=== PATIENT | female | born 1985 | race Caucasian/White ===

== ENCOUNTER 2018-04-16 10:48 | Emergency (ER) | payer OTHER ==
[2018-04-16] MEDS ORDERED: KETOROLAC 60 MG/2 ML VIAL IVP STA ×2 (12:54→13:10)
--- NOTE | 2018-04-16 12:57 | ED Physician Documentation ---
History of Present Illness - Stated complaint Stated Complaint: AB PX - Chief complaint Chief Complaint: General - History obtained from History obtained from: Patient - History of Present Illness Timing: Yesterday Pain level max: 9 Pain level now: 8 Improved by: nothing Worsened by: movement - Additonal information Additional information: LLQ abd/pelvic pain last yesterday, now spread to L flank and down the L leg. LMP was 2 weeks ago.. Had similar pain 6-8 months ago. Took midol last night without relief. No vaginal bleeding or discharge. Review of Systems Ten Systems: 10 systems reviewed and negative Constitutional: denies: Fever, Chills Throat: denies: Sore throat Cardiac: denies: Chest pain / pressure Respiratory: denies: Cough GI: denies: Vomiting : denies: Dysuria, Frequency, Hesitancy Skin: denies: Rash Musculoskeletal: denies: Neck pain Neurologic: denies: Headache PD PAST MEDICAL HISTORY - Past Medical History Past Medical History: Yes Cardiovascular: None Respiratory: Asthma, Other Endocrine/Autoimmune: None GI: GERD : None HEENT: Chronic vision loss Psych: Post traumatic stress disorder, Claustrophobia Musculoskeletal: None Derm: Other - Past Surgical History Past Surgical History: Yes - Present Medications Home Medications: Ambulatory Orders Medication Instructions Recorded Confirmed Albuterol Sulf [Ventolin Hfa 04/16/18 Inhaler] Hydrocodone/Acetaminophen 1 - 2 each PO Q6H PRN #14 tablet 04/16/18 [Hydrocodon-Acetaminophen 5-325] Meloxicam [Mobic] 15 mg PO DAILY PRN #20 tablet 04/16/18 Ondansetron Odt [Zofran] 4 mg TL Q6H PRN #10 tablet 04/16/18 - Allergies Allergies/Adverse Reactions: Allergies Allergy/AdvReac Type Severity Reaction Status Date / Time bacitracin Allergy Intermediate blisters Verified 12/25/14 22:44 [From Neosporin ([id number])] bacitracin zinc * Allergy Intermediate blisters Verified 12/25/14 22:44 [From Neosporin ([id number])] neomycin sulfate * Allergy Intermediate blisters Verified 12/25/14 22:44 [From Neosporin (did-fum-[id number])] polymyxin B Allergy Intermediate blisters Verified 12/25/14 22:44 [From Neosporin (aag-ibn-mvpar)] oxycodone HCl * AdvReac Intermediate Nausea Verified 04/06/15 09:21 [From Percocet] - Social History Does the pt smoke?: No Smoking Status: Never smoker Does the pt drink ETOH?: No Does the pt have substance abuse?: No - Immunizations Immunizations are current?: Yes Immunizations: TDAP >10years/unknown - POLST Patient has POLST: No PD ED PE NORMAL - Vitals Vital signs reviewed: Yes - General General: Alert and oriented X 3, Well developed/nourished, Other (appears in pain) - HEENT HEENT: PERRL, Moist mucous membranes - Neck Neck: Supple, no meningeal sign - Cardiac Cardiac: RRR, Strong equal pulses - Respiratory Respiratory: No respiratory distress, Clear bilaterally - Abdomen Abdomen: Soft, Non distended, Other (TTP LLQ no peritoneal signs) - Back Back: No CVA TTP, No spinal TTP - Derm Derm: Warm and dry - Extremities Extremities: Normal ROM s pain, No edema, No calf tenderness / cord - Neuro Neuro: Alert and oriented X 3 - Psych Psych: Normal mood, Normal affect Results - Vitals Vitals: Vital Signs - 24 hr 04/16/18 04/16/18 04/16/18 10:57 14:12 15:45 Temperature 36.9 C 37.1 C Heart Rate 110 H 85 70 Respiratory 16 12 16 Rate Blood Pressure 124/87 H 119/81 H 133/87 H O2 Saturation 99 100 100 Oxygen O2 Source Room air - Labs Labs: Laboratory Tests 04/16/18 04/16/18 04/16/18 13:15 13:15 13:30 WBC 8.5 RBC 4.76 Hgb 14.2 Hct 41.9 MCV 88.1 MCH 29.8 MCHC 33.9 RDW 12.6 Plt Count 279 MPV 7.7 L Neut # (Auto) 4.5 Lymph # (Auto) 3.1 [place] # (Auto) 0.6 Eos # (Auto) 0.3 Baso # (Auto) 0.0 Absolute Nucleated RBC 0.00 Nucleated RBC % 0.0 Sodium 137 Potassium 3.8 Chloride 104 Carbon Dioxide 26 Anion Gap 7.0 BUN 11 Creatinine 0.8 Estimated GFR (MDRD) 84 L Glucose 87 Calcium 8.9 Total Bilirubin 0.6 AST 18 ALT 17 Alkaline Phosphatase 57 Total Protein 7.6 Albumin 4.4 Globulin 3.2 Albumin/Globulin Ratio 1.4 Lipase 25 Urine Color YELLOW Urine Clarity HAZY Urine pH 6.5 Ur Specific [place] 1.020 Urine Protein NEGATIVE Urine Glucose (UA) NEGATIVE Urine Ketones NEGATIVE Urine Occult Blood NEGATIVE Urine Nitrite NEGATIVE Urine Bilirubin NEGATIVE Urine Urobilinogen 0.2 (NORMAL) Ur Leukocyte Esterase SMALL H Urine RBC 0-5 Urine WBC 6-10 H Ur Squamous Epith Cells MANY Squamous H Urine Bacteria Few Ur Microscopic Review INDICATED Urine Culture Comments NOT INDICATED Urine HCG, Qual NEGATIVE - Rads (name of study) CT abd/pelvis Radiology: Prelim report reviewed, EMP read contemporaneously, See rad report (Small amount of free fluid in the posterior cul-de-sac of the pelvis. No other localizing inflammatory process demonstrated.) PD MEDICAL DECISION MAKING - ED course Complexity details: reviewed results, re-evaluated patient, considered differential, d/w patient ED course: Pain greatly improved with toradol. Sx c/w ruptured ovarian cyst and small amount of free fluid on CT. Will continue supportive care and follow up with PCP. US not available today. Pt counseled regarding expected course and signs and symptoms for which I believe an urgent evaluation would be necessary. Pt wi th good understanding and agreement to plan. Departure - Departure Disposition: 01 Home, Self Care Clinical Impression: Ovarian cyst Qualifiers: Laterality: left Qualified Code(s): N83.202 - Unspecified ovarian cyst, left side Condition: Good Instructions: ED Cyst Ovarian Follow-Up: your,doctor in 1 week [Other] Prescriptions: Hydrocodone/Acetaminophen [Hydrocodon-Acetaminophen 5-325] 1 - 2 each PO Q6H PRN #14 tablet PRN Reason: pain Meloxicam [Mobic] 15 mg PO DAILY PRN #20 tablet PRN Reason: pain Ondansetron Odt [Zofran] 4 mg TL Q6H PRN #10 tablet PRN Reason: Nausea / Vomiting Comments: Return if you worsen. This should improve over the next few days. Do not drink alcohol or drive while on narcotic pain medicine. Note that many narcotic pain relievers also contain tylenol/acetaminophen. Please ensure that your total dose of acetaminophen from all sources does not exceed 3 grams (3000mg) per day. You may constipated on this medication, take a stool softener such as "Colace" twice a day while you are on it. Also recommend a mgnq-xax-owclvuw laxative such as senna or MiraLAX any day that you do not have a bowel movement. If you received narcotic pain medication in the emergency department, do not drive or operate machinery for the next 24 hours. Discharge Date/Time: 04/16/18 15:45
[2018-04-16] MEDS ORDERED: HYDROcod/ACETAM 5/325 MG TABLET PO STA (13:07)
[2018-04-16] MEDS ORDERED: KETOROLAC 60 MG/2 ML VIAL IM STA (13:07)
[2018-04-16] MEDS ORDERED: ONDANSETRON ODT 4 MG TABLET TL STA (13:07)
[2018-04-16] MEDS ORDERED: ONDANSETRON 4 MG/2 ML VIAL IVP STA (13:10)
[2018-04-16] MEDS ORDERED: IOVERSOL 320 100 ML VIAL IVP ONE ×2 (13:24→15:39)
[2018-04-16 13:26] LABS: BASOPHILS % (AUTO) 0.5 %; EOSINOPHILS # (AUTO) 0.3 10^3/uL (0.0-0.7); HGB - HEMOGLOBIN 14.2 g/dL (12.0-16.0); LYMPHOCYTES # (AUTO) 3.1 10^3/uL (1.5-3.5); LYMPHOCYTES % (AUTO) 36.5 %; MEAN CORPUSCULAR HEMOGLOBIN 29.8 pg (27.0-31.0); MEAN CORPUSCULAR HGB CONC 33.9 g/dL (32.0-36.0); MEAN CORPUSCULAR VOLUME 88.1 fL (81.0-99.0); MEAN PLATELET VOLUME 7.7 fL (7.9-10.8); MONOCYTES # (AUTO) 0.6 10^3/uL (0.0-1.0); MONOCYTES % (AUTO) 6.6 %; NEUTROPHILS # (AUTO) 4.5 10^3/uL (1.5-6.6); NEUTROPHILS % (AUTO) 53.4 %; PLT - PLATELET COUNT 279 10^3/uL (130-450); RED BLOOD COUNT 4.76 10^6/uL (4.20-5.40); RED CELL DISTRIBUTION WIDTH 12.6 % (12.0-15.0); WHITE BLOOD COUNT 8.5 x10^3/uL (4.8-10.8)
[2018-04-16 13:40] LABS: ALBUMIN 4.4 g/dL (3.2-5.5); ALBUMIN/GLOBULIN RATIO 1.4 (1.0-2.2); BILIRUBIN,TOTAL 0.6 mg/dL (0.2-1.0); CALCIUM 8.9 mg/dL (8.5-10.3); CREATININE 0.8 mg/dL (0.4-1.0); TOTAL PROTEIN 7.6 g/dL (6.7-8.2)
[2018-04-16 13:43] LABS: BILIRUBIN,URINE NEGATIVE (NEGATIVE); GLUCOSE, URINE (UA) NEGATIVE (NEGATIVE); KETONES,URINE (UA) NEGATIVE (NEGATIVE); LEUKOCYTE ESTERASE, URINE SMALL (NEGATIVE); NITRITE,URINE NEGATIVE (NEGATIVE); OCCULT BLOOD,URINE NEGATIVE (NEGATIVE); PH,URINE 6.5 PH (5.0-7.5); PROTEIN,URINE NEGATIVE (NEGATIVE); UROBILINOGEN,URINE 0.2 (NORMAL) E.U./dL (NORMAL)
[2018-04-16 13:45] LABS: CLARITY,URINE HAZY (CLEAR)
[2018-04-16 13:46] LABS: HCG UR QUAL NEGATIVE
[2018-04-16 13:50] LABS: BACTERIA,URINE Few /HPF (None Seen); RBC,URINE 0-5 /HPF (0-5); SQUAMOUS EPITHELIAL CELL,UR MANY Squamous (<= Few)
--- NOTE | 2018-04-16 15:19 | CT Report ---
Reason: LLQ abd Procedure Date: 04/16/2018 Accession Number: [id number] / [id number] Procedure: CT - Abdomen/Pelvis W/ CPT Code: FULL RESULT: EXAM: CT ABDOMEN AND PELVIS EXAM DATE: 04/16/2018 02:39 PM. CLINICAL HISTORY: LLQ abd. COMPARISONS: None. TECHNIQUE: Routine helical CT imaging was performed through the abdomen and pelvis. IV contrast: ISOVUE 300 100mL. Enteric contrast: No. Reconstructions: Coronal and sagittal. In accordance with CT protocol optimization, one or more of the following dose reduction techniques were utilized for this exam: automated exposure control, adjustment of mA and/or KV based on patient size, or use of iterative reconstructive technique. FINDINGS: Lung Bases: Unremarkable. Liver: Normal. No masses. Gallbladder/Bile Ducts: Unremarkable. Spleen: Normal. Pancreas: Normal. Adrenal Glands: Normal. Kidneys: Normal. No masses or hydronephrosis. Peritoneal Cavity/Bowel: Normal. No free fluid, free air or adenopathy. No masses or acute inflammatory process. The appendix is well visualized and normal. Pelvic Organs: There is a small volume of free fluid in the posterior cul-de-sac of the pelvis. The uterus is retroverted. The urinary bladder is only partially fluid filled but otherwise unremarkable. The ovaries appeared normal in size for age. Vasculature: No aneurysms or other significant abnormality. Bones: No significant abnormality. Other: None. IMPRESSION: 1. Small amount of free fluid in the posterior cul-de-sac of the pelvis. 2. No other localizing inflammatory process demonstrated. RADIA
[2018-04-16 15:48] VITALS: BP 133/87
== END 2018-04-16 15:45 | disposition home or self-care (01) ==
LOC: ED 10:48
DX: N83.202 Unspecified ovarian cyst, left side (principal)
CPT/HCPCS: 36415; 74177; 80053; 81001; 81025; 83690; 85025; 96374; 99283; Q9967; 81003; 87086

== ENCOUNTER 2018-11-26 21:04 | Emergency (ER) | payer OTHER ==
--- NOTE | 2018-11-26 21:30 | ED Physician Documentation ---
History of Present Illness - Stated complaint Stated Complaint: LT PINKY TOE PX - Chief complaint Chief Complaint: Ext Problem - History obtained from History obtained from: Patient - History of Present Illness Timing: Prior to arrival - Additonal information Additional information: Patient is a previously healthy 33-year-old female presenting with left pinky t oe injury that occurred just prior to arrival. Patient reports that she accidentally tripped on a baby gate causing the toe to turn outwards. Patient reports numbness to that area, as well as difficulty bearing weight. Patient also reports difficulty bending all toes. No other injuries. No other lacerations, abrasions, or skin changes. No other improving or worsening factors noted. Review of Systems Skin: denies: Rash, Lesions, Abrasion (s), Laceration (s) Musculoskeletal: reports: Extremity pain Neurologic: reports: Focal weakness, Numbness PD PAST MEDICAL HISTORY - Past Medical History Cardiovascular: None Respiratory: Asthma, Other Endocrine/Autoimmune: None GI: GERD : None HEENT: Chronic vision loss Psych: Post traumatic stress disorder, Claustrophobia Musculoskeletal: None Derm: Other - Past Surgical History Past Surgical History: Yes - Present Medications Home Medications: Ambulatory Orders Medication Instructions Recorded Confirmed Albuterol Sulf [Ventolin Hfa 04/16/18 Inhaler] Hydrocodone/Acetaminophen 1 - 2 each PO Q6H PRN #14 tablet 04/16/18 [Hydrocodon-Acetaminophen 5-325] Meloxicam [Mobic] 15 mg PO DAILY PRN #20 tablet 04/16/18 Ondansetron Odt [Zofran] 4 mg TL Q6H PRN #10 tablet 04/16/18 - Allergies Allergies/Adverse Reactions: Allergies Allergy/AdvReac Type Severity Reaction Status Date / Time bacitracin Allergy Intermediate blisters Verified 11/26/18 21:09 [From Neosporin ([id number])] bacitracin zinc * Allergy Intermediate blisters Verified 11/26/18 21:09 [From Neosporin ([id number]-[id number]-[id number])] neomycin sulfate * Allergy Intermediate blisters Verified 11/26/18 21:09 [From Neosporin ([id number]-[id number])] polymyxin B Allergy Intermediate blisters Verified 11/26/18 21:09 [From Neosporin ([id number]-[id number])] oxycodone HCl * AdvReac Intermediate Nausea Verified 11/26/18 21:09 [From Percocet] - Social History Does the pt smoke?: No Smoking Status: Never smoker Does the pt drink ETOH?: No Does the pt have substance abuse?: No - Immunizations Immunizations are current?: Yes Immunizations: TDAP >10years/unknown - POLST Patient has POLST: No PD ED PE NORMAL - Vitals Vital signs reviewed: Yes - General General: Alert and oriented X 3, No acute distress, Well developed/nourished - HEENT HEENT: Atraumatic, Moist mucous membranes - Cardiac Cardiac: Strong equal pulses - Respiratory Respiratory: No respiratory distress - Derm Derm: Normal color, Warm and dry, No rash - Extremities Extremities: No: No deformity (Slightly outward turning of left pinky toe with diffuse tenderness upon palpation.), No tenderness to palpate - Neuro Neuro: Alert and oriented X 3. No: No motor deficit (Slight decrease in range of motion to left pinky toe, as well as subjective paresthesia), No sensory deficit - Psych Psych: Normal mood, Normal affect Results - Vitals Vitals: Vital Signs - 24 hr 11/26/18 21:07 Temperature 37.0 C Heart Rate 81 Respiratory 18 Rate Blood Pressure 115/94 H O2 Saturation 100 Oxygen O2 Source Room air PD MEDICAL DECISION MAKING - ED course Complexity details: reviewed results, re-evaluated patient, considered differential, d/w patient, d/w family ED course: Most concerning for dislocation or fracture given injury and findings. Plain films obtained which found evidence of PIP dislocation of left pinky toe. Toe was manipulated and reduced. Postreduction films indicated appropriate anatomic alignment without fracture. Discussed results and recommendations with patient, return precautions, supportive cares, and appropriate follow-up. Patient and voiced understanding and are comfortable with discharge plan. Departure - Departure Disposition: 01 Home, Self Care Clinical Impression: Toe dislocation Qualifiers: Encounter type: initial encounter Laterality: left Qualified Code(s): S93.105A - Unspecified dislocation of left toe(s), initial encounter Condition: Good Instructions: ED Dislocation Toe Follow-Up: your,doctor [Other] - Within 3 Days Comments: Recommend ibuprofen/Tylenol as needed, elevation of foot, ice application as tolerated. Follow-up with primary care physician in next 2 to 3 days and return to ED sooner if experience worsening symptoms or have other concerns.
--- NOTE | 2018-11-26 21:49 | XRAY Report ---
Reason: toe injury Procedure Date: 11/26/2018 Accession Number: [id number] / [id number] Procedure: XR - Toe(s) LT CPT Code: FULL RESULT: EXAM: LEFT FIFTH TOE RADIOGRAPHY EXAM DATE: 11/26/2018 09:27 PM. CLINICAL HISTORY: Toe injury. Caught in baby gate. COMPARISON: None. TECHNIQUE: 3 views. FINDINGS: Bones: Normal. No fracture or bone lesion. Joints: Dislocation at the PIP joint. Otherwise alignment and joint spaces maintained. Soft Tissues: Unremarkable. IMPRESSION: PIP joint dislocation. RADIA
[2018-11-26] MEDS ORDERED: ACETAMINOPHEN 325 MG TABLET PO STA (22:08)
--- NOTE | 2018-11-26 22:30 | XRAY Report ---
Reason: post reduction of pinky toe Procedure Date: 11/26/2018 Accession Number: [id number] / [id number] Procedure: XR - Toe(s) LT CPT Code: FULL RESULT: EXAM: LEFT FIFTH TOE RADIOGRAPHY EXAM DATE: 11/26/2018 09:52 PM. CLINICAL HISTORY: Post reduction of pinky toe. COMPARISON: TOE(S) LT 11/26/2018 9:16 PM. TECHNIQUE: 3 views. FINDINGS: Bones: Normal. No fracture or bone lesion. Joints: Normal. No subluxations. Soft Tissues: Unremarkable. IMPRESSION: Anatomic alignment restored with no fracture visible. RADIA
[2018-11-26 22:44] VITALS: BP 116/92
== END 2018-11-26 22:42 | disposition home or self-care (01) ==
LOC: ED 21:04
DX: S93.115A Dislocation of interphalangeal joint of left lesser toe(s), initial encounter (principal); W22.8XXA Striking against or struck by other objects, initial encounter
CPT/HCPCS: 73660; 99282; A9270